=== PATIENT | male | born 1930 | race Hispanic/Latino ===

== ENCOUNTER 2018-09-25 18:18 | Emergency (ER) | payer MEDICARE ==
[~2018-09-25 18:18] MED LIST: ASPI-1012 PO; ESOM40CA54 PO; LISI10TA7 PO; MECL-129 PO; ROPI2TAB25 PO; SIMV80TA2 PO
[2018-09-25 18:44] LABS: BASOPHILS % (AUTO) 0.3 % (0.0-5.0); EOSINOPHILS % (AUTO) 1.4 % (0.0-8.0); HEMATOCRIT 43.7 % (42-54); LYMPHOCYTES % (AUTO) 15.3 % (21.0-51.0); MEAN CORPUSCULAR HEMOGLOBIN 30.9 pg (27.0-33.0); MEAN CORPUSCULAR HGB CONC 34.5 g/dL (32.0-36.0); MEAN CORPUSCULAR VOLUME 89.7 fL (79-99); PLATELET COUNT (AUTO) 145 K/uL (130-400); RED BLOOD CELL COUNT(AUTO) 4.87 MIL/uL (4.50-6.20); WHITE BLOOD COUNT (AUTO) 10.2 K/uL (4.8-10.8)
[2018-09-25] MEDS ORDERED: ASPIRIN 81MG TAB.CHEW ONE (18:44)
[2018-09-25 18:58] LABS: INR 1.08 (0.85-1.15); PARTIAL THROMBOPLASTIN TIME 31.8 SEC (26.3-35.5); PROTHROMBIN TIME 11.3 SEC (9.6-11.6)
[2018-09-25 19:29] LABS: CREATININE 1.1 mg/dL (0.5-1.5); POTASSIUM 3.9 mmol/L (3.5-5.1)
[2018-09-25 19:34] LABS: ALBUMIN 3.7 g/dL (3.5-5.0); BILIRUBIN,TOTAL 0.7 mg/dL (0.2-1.0); TOTAL PROTEIN, SERUM 7.1 g/dL (6.0-8.3)
[2018-09-25] MEDS ORDERED: IOHEXOL-350 75 ML VIAL IV ONE (20:10)
== END 2018-09-25 23:00 | disposition home or self-care (01) ==
LOC: EDH 18:18
DX: I11.9 Hypertensive heart disease without heart failure (principal); R07.89 Other chest pain; E78.5 Hyperlipidemia, unspecified
CPT/HCPCS: 36415; 71045; 71275; 80053; 83880; 84484 ×2; 85025; 85610; 85730; 93005 ×2; 99285; Q9967